=== PATIENT | female | born 1990 | race Caucasian/White ===

== ENCOUNTER 2017-03-13 13:00 | Emergency (ER) | payer MEDICARE, MEDICAID ==
[2017-03-13 13:15] VITALS: BP 117/75; PULSE 75; RESP 16; TEMP 98.6; O2SAT 100
== END 2017-03-13 13:40 | disposition home or self-care (01) | DRG 886 ==
LOC: ED 13:00
DX: F91.9 Conduct disorder, unspecified (principal)
CPT/HCPCS: 99282; 99283

== ENCOUNTER 2017-03-25 20:53 | Observation (INO) | payer MEDICARE, MEDICAID ==
[2017-03-25 21:52] LABS: BASOPHILS % (AUTO) 1 % (0-3); EOSINOPHILS % (AUTO) 2 % (0-9); HEMATOCRIT 36 % (35-47); MEAN CORPUSCULAR HGB CONC 34.8 gm/dl (32.0-36.0); MEAN CORPUSCULAR VOLUME 93 fL (81-99); MONOCYTES % (AUTO) 8.2 % (0-12); NEUTROPHILS % (AUTO) 53.7 % (37-80)
[2017-03-25 22:21] LABS: ALBUMIN 2.8 gm/dl (3.4-5.0); ALT 20 IU/L (14-63); CALCIUM 8.1 mg/dl (8.5-10.1); GLOM FILT RATE 82 mL/min (>60); POTASSIUM 4.3 mMol/L (3.5-5.1); SALICYLATE < 2.8 mg/dl (2.8-30.0); SODIUM 139 mMol/L (136-145); THYROID STIMULATING HORMONE 4.439 uIU/ml (0.358-3.740)
[2017-03-25 22:48] LABS: APPEARANCE,URINE Slightly Cloudy; BILIRUBIN,URINE NEGATIVE (NEGATIVE); COLOR,URINE Yellow; GLUCOSE, URINE (UA) NEGATIVE (NEGATIVE); KETONES,URINE TRACE (NEGATIVE); LEUKOCYTE ESTERASE ,URINE 2+ (NEGATIVE); NITRATE,URINE NEGATIVE (NEGATIVE); OCCULT BLOOD,URINE NEGATIVE (NEG-TRACE)
[2017-03-25 22:58] LABS: AMPHETAMINES NEGATIVE (NEGATIVE); METHADONE NEGATIVE (NEGATIVE); OPIATES(OP13) NEGATIVE (NEGATIVE); OXYCODONE(OXY) NEGATIVE (NEGATIVE); PROPOXYPHENE(PPX) NEGATIVE (NEGATIVE); TRICYCLIC ANTIDEPRESSANTS NEGATIVE (NEGATIVE)
[2017-03-26] MEDS ORDERED: IBUPROFEN 400 MG TAB PO PRN (04:17)
[2017-03-26] MEDS ORDERED: MAGNESIUM HYDROXIDE 30 ML SUS PO PRN (04:17)
[2017-03-26] MEDS ORDERED: ALBUTEROL HFA 60 PUFF/INHALER INH PRN (04:17)
[2017-03-26] MEDS ORDERED: [UNRECOGNIZED DRUG - OTHER] NS PRN (04:17)
[2017-03-26] MEDS ORDERED: CALCIUM CARBONATE 500 MG TAB PO PRN (04:17)
[2017-03-26] MEDS ORDERED: LOPERAMIDE HYDROCHLORIDE 2 MG CAP PO PRN (04:17)
[2017-03-26] MEDS ORDERED: KETOCONAZOLE CREAM 2% CRE TP PRN (04:17)
[2017-03-26] MEDS ORDERED: DIPHENHYDRAMINE 25 MG CAP PO PRN (04:17)
[2017-03-26] MEDS ORDERED: SODIUM CHLORIDE NS PRN (04:17)
[2017-03-26] MEDS ORDERED: DM/GUAIFENESIN SYRUP 10 ML SYRP PO PRN (04:17)
[2017-03-26] MEDS ORDERED: HALOPERIDOL 1 MG TAB PO PRN (04:17)
[2017-03-26] MEDS ORDERED: ACETAMINOPHEN 500 MG 500 MG TAB PO PRN (04:17)
[2017-03-26] MEDS ORDERED: RANITIDINE HCL 150 MG TAB PO SCH (08:00)
[2017-03-26] MEDS ORDERED: DULOXETINE HYDROCHLORIDE 60 MG ECC PO SCH (08:00)
[2017-03-26] MEDS ORDERED: PROPRANOLOL HYDROCHLORIDE 20 MG TAB PO SCH (08:00)
[2017-03-26] MEDS: MONTELUKAST SODIUM 10 MG TAB PO SCH (08:13)
[2017-03-26] MEDS: CALCIUM CARBONATE 500 MG TAB PO SCH ×2 (08:13→20:15)
[2017-03-26] MEDS: HALOPERIDOL 1 MG TAB PO SCH (08:14)
[2017-03-26] MEDS: MULTIVITAMIN2 1 EA TAB PO SCH (08:14)
[2017-03-26] MEDS ORDERED: DULOXETINE HCL 30 MG CAPSULE.DR PO ONE (08:24)
[2017-03-26] MEDS: CHOLECALCIFEROL 1,000 IU TAB PO SCH (08:31)
[2017-03-26] MEDS ORDERED: ARIPIPRAZOLE 5 MG TAB PO SCH (09:00)
[2017-03-26] MEDS: TOPIRAMATE 25 MG TABLET PO SCH ×2 (10:08→20:18)
[2017-03-26] MEDS: PANTOPRAZOLE SODIUM 40 MG ECT PO SCH (10:08)
[2017-03-26] MEDS: LACTOBACILLUS ACIDOPHILUS/PE 1 TAB TAB PO SCH (10:26)
[2017-03-26] MEDS: PROPRANOLOL HCL 40 MG TAB PO SCH ×3 (10:26→20:14)
[2017-03-26] MEDS: ARIPIPRAZOLE 15 MG PO SCH (10:26)
[2017-03-26] MEDS: DIVALPROEX SODIUM 500 MG PO SCH ×2 (10:27→16:41)
[2017-03-26] MEDS: DULOXETINE HCL 30 MG CAPSULE.DR PO SCH ×2 (10:27→16:43)
[2017-03-26] MEDS: NORETHINDRONE AC ETH ESTRADIOL PO SCH (14:40)
[2017-03-26] MEDS: [UNRECOGNIZED DRUG - OTHER] TP SCH ×2 (14:40→20:10)
[2017-03-26] MEDS: [UNRECOGNIZED DRUG - OTHER] PO SCH (14:40)
[2017-03-26] MEDS ORDERED: DOCUSATE SODIUM 100 MG SGL PO SCH (20:00)
[2017-03-26] MEDS ORDERED: LORATADINE 10 MG TAB PO SCH (20:00)
[2017-03-26] MEDS ORDERED: HALOPERIDOL 10 MG TAB PO SCH (20:00)
[2017-03-27 01:43] VITALS: TEMP 96.7; O2SAT 100
[2017-03-27 08:18] VITALS: BP 114/77; PULSE 75; RESP 20
[2017-03-27] MEDS: LACTOBACILLUS ACIDOPHILUS/PE 1 TAB TAB PO SCH (08:29)
[2017-03-27] MEDS: NORETHINDRONE AC ETH ESTRADIOL PO SCH (08:30)
[2017-03-27] MEDS: [UNRECOGNIZED DRUG - OTHER] PO SCH (08:30)
[2017-03-27] MEDS: PROPRANOLOL HCL 40 MG TAB PO SCH ×2 (08:31→15:05)
[2017-03-27] MEDS: ARIPIPRAZOLE 15 MG PO SCH (08:32)
[2017-03-27] MEDS: DIVALPROEX SODIUM 500 MG PO SCH ×2 (08:32→15:06)
[2017-03-27] MEDS: CALCIUM CARBONATE 500 MG TAB PO SCH (08:38)
[2017-03-27] MEDS: MULTIVITAMIN2 1 EA TAB PO SCH (08:38)
[2017-03-27] MEDS: MONTELUKAST SODIUM 10 MG TAB PO SCH (08:38)
[2017-03-27] MEDS: PANTOPRAZOLE SODIUM 40 MG ECT PO SCH (08:38)
[2017-03-27] MEDS: HALOPERIDOL 1 MG TAB PO SCH (08:38)
[2017-03-27] MEDS: CHOLECALCIFEROL 1,000 IU TAB PO SCH (08:39)
[2017-03-27] MEDS: [UNRECOGNIZED DRUG - OTHER] TP SCH (08:46)
[2017-03-27] MEDS: TOPIRAMATE 25 MG TABLET PO SCH (08:49)
[2017-03-27] MEDS: DULOXETINE HCL 30 MG CAPSULE.DR PO SCH ×2 (08:50→15:05)
== END 2017-03-27 15:25 | DRG 880 ==
LOC: ED 20:53 → ACUTE CARE 03-26 02:05
PROVIDERS: ADMIT Emergency Medicine; ATTEND Emergency Medicine
DX: R45.851 Suicidal ideations (principal); F32.9 Major depressive disorder, single episode, unspecified
CPT/HCPCS: 36415; 80053; 80305; 80307; 81003; 84443; 84703; 85025; 99224; 99283; 99284